=== PATIENT | female | born 1945 | race African-American/Black ===

== ENCOUNTER 2018-07-26 11:55 | Emergency (ER) | payer SELFPAY ==
[~2018-07-26] VITALS: Ht 154.9 cm; Wt 7.0 kg
[2018-07-26] MEDS ORDERED: GABA-531 PO (12:13)
[2018-07-26] MEDS ORDERED: PRAV40TA58 PO (12:13)
[2018-07-26] MEDS ORDERED: METF-815 PO (12:13)
[2018-07-26] MEDS ORDERED: AMLO5TAB88 PO (12:13)
[2018-07-26] MEDS ORDERED: CLON-457 PO (12:13)
[2018-07-26] MEDS ORDERED: ESOM40CA PO (12:13)
[2018-07-26] MEDS ORDERED: LOSA1TAB34 PO (12:13)
[2018-07-26] MEDS ORDERED: OXYB5SYR2 JT (12:13)
[2018-07-26 13:21] LABS: BASOPHILS % 0.6 % (0.0-2.0); EOSINOPHILS % 2.8 % (0.0-5.0); HEMATOCRIT. 35.7 % (36.0-48.0); HEMOGLOBIN. 11.4 g/dL (12.0-16.0); LYMPHOCYTES % 28.3 % (20.0-50.0); MEAN CORPUSCULAR HEMOGLOBIN 27.2 pg (28.0-32.0); MEAN CORPUSCULAR VOLUME 85.5 fL (81.0-99.0); MEAN PLATELET VOLUME 7.7 fl (7.4-10.4); MONOCYTES % 10.9 % (2.0-8.0); NEUTROPHILS % 57.4 % (40.0-76.0); PLATELET 194 x1000/uL (130-400); RED BLOOD CELL COUNT 4.18 mill/uL (4.2-5.4); RED CELL DISTRIBUTION WIDTH 17.8 % (11.6-14.6)
[2018-07-26 13:28] LABS: INR 0.9; PROTHROMBIN TIME 9.4 sec (9.1-11.1)
[2018-07-26 13:32] LABS: CHLORIDE 109 mEq/L (98-107)
[2018-07-26 14:00] VITALS: BP 162/65
== END 2018-07-26 14:48 | disposition home or self-care (01) ==
LOC: ER 14:23
DX: D64.9 Anemia, unspecified (principal); R79.89 Other specified abnormal findings of blood chemistry; C18.9 Malignant neoplasm of colon, unspecified; I10 Essential (primary) hypertension; E11.9 Type 2 diabetes mellitus without complications; F17.210 Nicotine dependence, cigarettes, uncomplicated; Z79.899 Other long term (current) drug therapy; Z92.21 Personal history of antineoplastic chemotherapy; Z90.49 Acquired absence of other specified parts of digestive tract; Z90.89 Acquired absence of other organs
CPT/HCPCS: 36415; 99284